=== PATIENT | female | born 1960 | race Caucasian/White ===

== ENCOUNTER 2017-01-12 14:59 | Emergency (ER) | payer SELFPAY ==
[2017-01-12 18:03] VITALS: BP 123/64
== END 2017-01-12 18:03 | disposition home or self-care (01) ==
LOC: ED 14:59
DX: S29.011A Strain of muscle and tendon of front wall of thorax, initial encounter (principal); S46.911A Strain of unspecified muscle, fascia and tendon at shoulder and upper arm level, right arm, initial encounter; S50.02XA Contusion of left elbow, initial encounter; S60.212A Contusion of left wrist, initial encounter; M54.2 Cervicalgia; R51 Headache; V49.9XXA Car occupant (driver) (passenger) injured in unspecified traffic accident, initial encounter; W22.10XA Striking against or struck by unspecified automobile airbag, initial encounter; Y93.89 Activity, other specified; Y99.8 Other external cause status; Y92.89 Other specified places as the place of occurrence of the external cause